=== PATIENT | male | born 1945 | race Caucasian/White ===

== ENCOUNTER → 2018-09-26 08:50 | Day surgery (SDC) | payer MEDICARE ==
[~2018-09-26 08:50] MED LIST: Heparin 2 UNITS/ML IVPREMIX* 2,000 ML IV ONE; Heparin(*) 1000 UNIT/ML 10 ML VIAL CATH LAB IV ONE; Iohexol 350 (CONTRAST) 200 ML MDV IV ONE; Lidocaine 1% INJ* 10 MG/ML 30 ML SDV ONE; Midazolam* 1 MG/ML 10 ML VIAL (10 MG) ONE; NS 0.9% 1000 ML* 1,000 ML IV SCH; VERAPAMIL 2.5 MG/ML 2 ML VIAL ** 5 mg/2 ml ONE; fentaNYL* 50 MCG/ML 2 ML VIAL (100 MCG VIAL) ONE; nitroGLYCERIN DRIP* 25,000 MCG/250 ML BTL ONE
[2018-09-26 10:08] LABS: ABS Basophils 0.1 10^3/ul (0-0.2); ABS Eosinophils 0.2 10^3/ul (0-0.6); ABS Lymphocytes 2.5 10^3/ul (1.0-4.8); ABS Monocytes 1.3 10^3/ul (0-0.8); ABS Neutrophils 7.8 10^3/ul (1.5-7.7); ABS Nucleated RBC 0 10^3/ul; Eosinophil % 2.1 %; Hematocrit 41 % (42-52); Hemoglobin 14.2 g/dl (14.0-18.0); Lymphocyte % 20.7 %; Mean Corpuscular HGB Conc 34 g/dl (31-36); Mean Corpuscular Hemoglobin 29 pg (27-31); Mean Corpuscular Volume 84 fL (80-94); Mean Platelet Volume 7.6 fL (7.4-10.4); Nucleated Red Blood Cells % 0; Platelet Count 271 10^3/ul (150-450); Red Blood Count 4.93 10^6/ul (4.00-5.40); Red Cell Distribution Width 14 % (10.5-15); White Blood Count 11.9 10^3/ul (3.5-10.8)
[2018-09-26 10:25] LABS: BUN/Creatinine Ratio 13.3 (8-20); Calcium 8.7 mg/dL (8.6-10.3); EGFR Non-African American 83.4 (>60); Potassium 3.6 mmol/L (3.5-5.0)
[2018-09-26 16:21] VITALS: BP 176/85
--- NOTE | 2018-09-26 19:25 | CATH ---
CC: Dr. Morteza Arriaga; Dr. Tavon Irwin, fax #[phone] * CATH REPORT: DATE OF PROCEDURE: 09/26/18 - [facility] CATH PRIMARY CARE PHYSICIAN: Dr. Morteza Arriaga in . CREDIT COUNSELOR: Dr. Tavon Irwin in [place]. His fax number is [phone]. PROCEDURES: 1. Right radial artery access. 2. Bilateral selective coronary cineangiography. 3. Left heart catheterization. HISTORY: A 72-year-old male, diabetic, with chronic atrial fibrillation, on Coumadin, last dose of Coumadin was last Tuesday, 3 days ago. He has had slowly progressive functional class 2 angina with exertional dyspnea for the past year, has not had rest pain or prolonged pain. However, a recent troponin was elevated at 0.07. He is very sedentary, has not had bleeding complications on Coumadin. Stress imaging in 2016 reported inferior wall ischemia, echo at that time was reported as showing normal LV systolic function with LVH and probable diastolic dysfunction. PROCEDURE ACCESS: Right radial artery sheath 6F slender. MEDICATIONS: 1. Subcu lidocaine. 2. IV Versed. 3. IV fentanyl. 4. Heparin 3000 units. 5. Verapamil 3 mg. 6. Nitroglycerin 300 mcg IA. DIAGNOSTIC CATHETERS: A 5F TIG4, 5F R4. HEMODYNAMICS: He was in atrial fibrillation throughout the procedure. Initial AO 130/71. LV 118/20-27, no significant aortic valve gradient, less than 5 mmHg in atrial fibrillation. ANGIOGRAPHY: The left and right coronary arteries are heavily calcified. Left Main: The left main is heavily calcified, has a distal eccentric up to 80 % to 90% stenosis, which straddles the origin of the circumflex and compromises the LAD origin. Antegrade flow is ZACKERY-3. LAD: The LAD is moderate, extends past the apex, it is heavily calcified, has a proximal 60% stenosis as well as an ostial 80% to 90% stenosis. The LAD has 40% to 50% stenosis after a relatively small diagonal. There are left to right collaterals to the distal right coronary with filling of a PDA which is possibly under filled as well as several smaller posterolateral branches. Circumflex: The circumflex is moderate, not dominant, has an ostial 80% to 90% stenosis, supplies a large first marginal which covers most of the obtuse margin , followed by the AV groove continuation which has a mid 40% to 50% stenosis, and ends with a small posterolateral branch. RCA: The RCA is heavily calcified, dominant, moderate, has mid 60% stenosis, and is then occluded after the acute margin. There are RV free wall branch collaterals to the apical RPDA. The more distal RCA fills from the left. LV gram was not performed because of severity of disease. CONCLUSION: 1. Significant left main and 3-vessel disease. His RCA is left coronary dependent. Arrangements are being made to transfer him by ambulance for bypass grafting. He is hemodynamically and clinically stable. 2. Elevated LVEDP consistent with diastolic dysfunction. 3. Chronic atrial fibrillation. 4. Successful right radial artery access. [id number] #: [id number] MTDD
== END | disposition home or self-care (01) ==
LOC: CHICATH 08:50
PROVIDERS: ATTEND Internal Medicine Cardiovascular Disease
DX: I25.10 Atherosclerotic heart disease of native coronary artery without angina pectoris (principal); I25.84 Coronary atherosclerosis due to calcified coronary lesion; R07.9 Chest pain, unspecified; R94.39 Abnormal result of other cardiovascular function study; I48.2 Chronic atrial fibrillation; Z79.01 Long term (current) use of anticoagulants; E11.9 Type 2 diabetes mellitus without complications; Z79.84 Long term (current) use of oral hypoglycemic drugs; I10 Essential (primary) hypertension; E78.5 Hyperlipidemia, unspecified; R06.02 Shortness of breath
CPT/HCPCS: 36415; 80048; 83880; 85025; 93458; 99156; 99157; J1644; J2250; J3010